=== PATIENT | female | born 1985 | race Caucasian/White ===

== ENCOUNTER 2020-09-14 11:04 | Day surgery (SDC) | payer OTHER ==
[~2020-09-14] VITALS: Ht 175.3 cm; Wt 79.1 kg
[~2020-09-14 11:04] MED LIST: BENA25CA4 PO; HYDR-643 PO; LIDOCAINE 1% MDV 20ML VIAL SQ PRN; LR 1,000 ML IV ONE; PARA1IUD
[2020-09-14 11:45] LABS: HEMOGLOBIN 13.4 g/dl (12.0-15.5); MEAN CORPUSCULAR HEMOGLOBIN 31.2 pg (27.0-33.0); MEAN CORPUSCULAR HGB CONC 32.7 g/dl (32.0-36.5); MEAN CORPUSCULAR VOLUME 95.6 fl (80.0-96.0); PLATELET COUNT, AUTOMATED 275 10^3/uL (150-450); RED BLOOD COUNT 4.29 10^6/uL (4.00-5.40); WHITE BLOOD COUNT 5.5 10^3/uL (4.0-10.0)
[2020-09-14 12:05] LABS: HCG, SERUM QUALITATIVE NEGATIVE (NEGATIVE)
[2020-09-14] MEDS ORDERED: PARAGARD T380-A INTRAUTERINE DEVICE As Ordered ONE ×2 (12:25→13:08)
[2020-09-14] MEDS ORDERED: propofoL 200 MG/20 ML VIAL As Ordered ONE ×2 (12:34→12:51)
[2020-09-14] MEDS ORDERED: LIDOCAINE 2% 100MG/5ML SDV (FOR ANES.) As Ordered ONE (12:35)
[2020-09-14] MEDS ORDERED: MIDAZOLAM INJ 2MG/2ML VIAL (J2250 PER 1MG) As Ordered ONE (12:37)
[2020-09-14] MEDS ORDERED: dexameTHASONE 4 MG/ML 1ML VIAL (J1100 PER 1MG) As Ordered ONE (12:51)
[2020-09-14] MEDS ORDERED: KETOROLAC 60MG 2ML VIAL As Ordered ONE (13:23)
[2020-09-14] MEDS ORDERED: ONDANSETRON 4MG/2ML VIAL IV PRN (13:35)
[2020-09-14] MEDS ORDERED: LR 1,000 ML IV SCH (13:35)
[2020-09-14] MEDS ORDERED: KETOROLAC 30 MG/ML 1ML VIAL IV PRN (13:35)
[2020-09-14] MEDS ORDERED: oxyCODONE 5MG TAB PO PRN (13:35)
[2020-09-14] MEDS ORDERED: fentaNYL 100 MCG/2 ML INJECTION (J3010) IV PRN (13:35)
[2020-09-14] MEDS ORDERED: HYDROMORPHONE HCL 0.5 MG/ 0.5 ML SYRINGE (J1170 PER 1) IV PRN (13:35)
[2020-09-14 14:30] VITALS: BP 115/63
--- NOTE | 2020-09-15 14:54 | RO ---
OPERATIVE NOTE DATE OF OPERATION: 09/14/2020 PREOPERATIVE DIAGNOSIS: Retained intrauterine device. POSTOPERATIVE DIAGNOSIS: Retained intrauterine device. PROCEDURE: Operative hysteroscopy with intrauterine device removal and IUD replacement. SURGEON: MICAH GARCIA DO ASSISTANTS: None. IV FLUIDS: 800 mL lactated Ringer's. URINE OUTPUT: 50 mL via straight catheterization. EBL: 2 mL. ANESTHESIA: General. ANTIBIOTICS: None indicated. COMPLICATIONS: None. DETAILED PROCEDURE DESCRIPTION: The risks, benefits, indications, and alternatives of the procedure were reviewed with the patient and informed consent was obtained. The patient was taken to the operating room where general anesthesia was obtained without difficulty. The patient was then placed in the lithotomy position using Valente stirrups. The patient was then prepped and draped in the usual sterile fashion. The bladder was drained using an in and out catheter. A surgical time-out was then performed and the patient's identity and planned procedure were verified with the operative team. A sterile speculum was then placed in the patient's vagina and the cervix was visualized. A single-toothed tenaculum was then used to grasp the anterior lip of the cervix. The IUD strings were not seen protruding from the cervical os. The hysteroscope was then primed. The hysteroscope was then advanced through the endocervical canal under direct visualization. Distention of the uterus was performed with warm saline and a systematic examination of the intrauterine cavity was performed. The IUD was noted to be in the uterus properly, but the strings were tucked completely behind the IUD and all the way up to the uterine fundus. Hysteroscopic graspers were then introduced into the uterus and the IUD strings were grasped. The IUD was then removed intact in its entirety from the uterus and discarded off of the field. The hysteroscope was then removed. Fluid deficit was less than 10 mL of saline. The uterus was then sounded to approximately 9 cm with the uterine sound. The new ParaGard IUD was then opened on the field. The uterine cavity length was set. The new ParaGard IUD was then inserted into the uterus per the babcock tester's guidelines without difficulty. The IUD strings were then cut 3 cm from the cervical os. The cervix appeared hemostatic. The single-toothed tenaculum was then removed and the cervix continued to be hemostatic. All instruments were then removed from the patient's vagina. The patient tolerated the procedure well. At the completion of the case the sponge, instrument, and needle counts were correct x2. The patient was taken to the PACU in stable condition. ParaGard lot number was [id number]. MTDD
--- NOTE | 2020-09-16 13:46 | RO ---
OPERATIVE NOTE DATE OF OPERATION: 09/14/2020 PREOPERATIVE DIAGNOSIS: Retained intrauterine device (IUD) and desire for a new one. POSTOPERATIVE DIAGNOSIS: Retained intrauterine device (IUD) and desire for a new one. PROCEDURE: Operative hysteroscopy with Paraguard intrauterine device removal and replacement SURGEON: Gino Delcid DO. DATA MINER: None. IV FLUIDS: 800 mL LR. URINE OUTPUT: 30 mL via straight cath. ESTIMATED BLOOD LOSS: 3 mL. ANTIBIOTICS: None indicated. ANESTHESIA: General. COMPLICATIONS: None. DESCRIPTION OF PROCEDURE: The risks, benefits, indications, and alternatives of the procedure were reviewed with the patient and informed consent was obtained. The patient was taken to the operating room where general anesthesia was obtained without difficulty. The patient was then placed in the lithotomy position using gel-padded Valente stirrups. The patient was then prepped and draped in the usual sterile fashion. The bladder was drained using an in-and-out catheter. A surgical time-out was then performed where the patient's identity and planned procedure were verified with the operative team. A sterile speculum was placed in the patient's vagina and the cervix was visualized. A single-toothed tenaculum was used to grasp the anterior lip of the cervix. The hysteroscope was then primed. The hysteroscope was then advanced into the endocervical canal under direct visualization. After distention of the uterus with warm saline, a systematic examination of the intrauterine cavity was performed. The ParaGard IUD was noted to be within the uterus and the strings were tucked significantly backwards up towards the uterine fundus. Hysteroscopic graspers were then inserted into the uterus and the IUD strings were grasped. The IUD was then removed intact and in its entirety from the uterus. The hysteroscope was removed along with it. The fluid deficit was 10 mL of normal saline. The ParaGard IUD was then discarded off the field. A new ParaGard IUD was then opened on the field and the uterine cavity length was measured. The new ParaGard IUD was then inserted into the uterus without difficulty per the pie maker guidelines. The IUD strings were then cut 3 cm from the external cervical os. The cervix was hemostatic. The single-toothed tenaculum was then removed from the patient's cervix and excellent hemostasis was noted at the tenaculum site. All instruments were then removed from the patient's vagina. The patient tolerated the procedure well. At the completion of the case, the sponge, instrument, and needle counts were correct x2. The patient was taken to the PACU in stable condition. ParaGard Lot #[id number]. MTDD
== END 2020-09-14 14:30 | disposition home or self-care (01) ==
LOC: M SDC 11:04
PROVIDERS: ATTEND Obstetrics & Gynecology
DX: Z30.433 Encounter for removal and reinsertion of intrauterine contraceptive device (principal); Z79.899 Other long term (current) drug therapy
CPT/HCPCS: 36415; 58300; 58562; 84703; 85027; J1100; J1885; J2250; J7300